=== PATIENT | male | born 1990 | race Caucasian/White ===

== ENCOUNTER 2016-06-24 19:27 | Emergency (ER) | payer MEDICAID ==
--- NOTE | 2016-06-24 19:51 | EDPHY ---
H & P Time Seen by Provider: 06/24/16 19:49 HPI/ROS: CHIEF COMPLAINT: AMS, Heroin and Etizolam use. HISTORY OF PRESENT ILLNESS: The patient is a 26-year-old male who presents with AMS. He was supposed to go to a heroin rehab program in [place] today. A counselor from the rehab facility picked the pt up from [place] this afternoon and found the pt to be quite somnolent. The pt admits using 1/4 gram heroin 7 hours ago and 8mg Etizolam 3 hours ago. He has been increasingly fatigued since use and now cannot stay awake. He was was sent here for medical clearance due somnolence and concern for respiratory depression. He denies SI or HI. REVIEW OF SYSTEMS: A complete 10-point review of systems was performed and is negative except for those items mentioned in the HPI. Past Medical/Surgical History: Asthma, IV drug abuse. Social History: Polysubstance abuse. Physical Exam: General Appearance: Lethargic, difficult to keep pt awake to have a conversation Eyes: Pupils equal and round, 2mm, no conjunctival pallor or injection ENT, Mouth: Mucous membranes moist Neck: Normal inspection Respiratory: resp rate 10, Lungs are clear to auscultation Cardiovascular: Regular rate and rhythm Gastrointestinal: Abdomen is soft and non-tender Neurological: lethargic, [place], follows commands, quickly falls to sleep Skin: Warm and dry Extremities: track dobbs, no erythema Psychiatric: flat affect Constitutional: Initial Vital Signs Heart Rate 101 H 06/24/16 19:47 Respiratory Rate 10 L 06/24/16 19:47 Blood Pressure 105/67 06/24/16 19:47 O2 Sat (%) 98 06/24/16 19:47 O2 Delivery Mode Room Air Allergies/Adverse Reactions: Penicillins Allergy (Verified 06/24/16 19:47) tree nut [Nuts] Allergy (Verified 06/24/16 19:46) Home Medications: Medication Instructions Recorded Albuterol 06/24/16 Medical Decision Making ED Course/Re-evaluation: This pt presents with AMS after polysubstance abuse. He is maintaining an adequate O2 saturation, but remains quite somnulent. We will monitor him until he is able to be discharged to the [facility] rehab facility. 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 At shift change, I signed this pt over to Dr. Almaraz. Differential Diagnosis: includes though not limited to hypoglycemia, alcohol intoxication, respiratory depression. Departure - Departure Disposition: Home, Routine, Self-Care Clinical Impression: Heroin use, Benzodiazepine abuse Condition: Good Instructions: Benzodiazepine Abuse (ED), Narcotic Abuse (ED) Additional Instructions: Return to the emergency department for any serious worsening of condition. Referrals: NONE *PRIMARY CARE P,. [Primary Care Provider] - As per Instructions Report Scribed for: Nao Estrella Report Scribed by: Robbie Garcia Date of Report: 06/24/16 Time of Report: 19:50 Physician Review and Approval Statement: 06/24/16 19:50 Portions of this note were transcribed by a medical laboratory specialist. I personally performed a history, physical exam, medical decision making, and confirmed accuracy of information the transcribed note.
[2016-06-24 20:08] VITALS: RESP 16
[2016-06-24 22:30] VITALS: PULSE 88
[2016-06-24 23:27] VITALS: TEMP 97.9
[2016-06-25 00:50] VITALS: BP 111/62; O2SAT 99
== END 2016-06-25 01:26 | disposition home or self-care (01) ==
DX: F13.10 Sedative, hypnotic or anxiolytic abuse, uncomplicated (principal); F11.90 Opioid use, unspecified, uncomplicated

== ENCOUNTER 2017-02-09 15:41 | Emergency (ER) | payer MEDICAID ==
[2017-02-09 15:48] VITALS: BP 147/94; PULSE 77; RESP 18; TEMP 97.7; O2SAT 98
--- NOTE | 2017-02-09 16:02 | EDPHY ---
H & P Stated Complaint: OD HEROIN LAST NIGHT/RX NARCAN 11PM/SEEN AT [facility] TODAY SWEATING/SHAKY Time Seen by Provider: 02/09/17 15:49 HPI/ROS: CHIEF COMPLAINT: Concerns after heroin OD HISTORY OF PRESENT ILLNESS: This patient is a 26 y/o male complaining of shakiness and anxiety. He was treated at [facility] last night for a heroin overdose, and given Narcan at that time. He takes Pristiq for depression, and "took a lot". He is generally prescribed 150mg per day, but took 400mg. He is concerned about serotonin syndrome. He does not think he is in withdrawal from heroin, as he is aware of his general symptoms and he had not used heroin for 1-2 months prior to his use last night. Today he feels anxious, confused, and dizzy and is sweating, has rigid muscles, and threw up twice. He denies any other drug use. He denies other associated symptoms or complaints. REVIEW OF SYSTEMS: A 10 point review of systems was performed and is negative with the exception of the elements mentioned in the history of present illness. - Personal History Current Tetanus/Diphtheria Vaccine: Yes - Medical/Surgical History PMH: 1. Depression 2. Asthma Hx Asthma: Yes Hx Chronic Respiratory Disease: No Hx Diabetes: No Hx Cardiac Disease: No Hx Renal Disease: No Hx Cirrhosis: No Hx Alcoholism: No Hx HIV/AIDS: No Hx Splenectomy or Spleen Trauma: No Other PMH: asthma, IVDA/HEROIN - Social History Smoking Status: Never smoked Additional Social History: Lives in [place]. Single. Nonsmoker. IV heroin use. - Physical Exam Exam: General Appearance: Alert, appears anxious Eyes: Pupils equal and round, no conjunctival pallor or injection ENT, Mouth: Mucous membranes moist Neck: Normal inspection Respiratory: Lungs are clear to auscultation Cardiovascular: Regular rate and rhythm Gastrointestinal: Abdomen is soft and non- tender Neurological: A&O, nonfocal, normal gait Skin: Warm and dry, no rash Extremities: Nontender, no pedal edema Psychiatric: Mood and affect normal Constitutional: Initial Vital Signs Temperature (C) 36.5 C 02/09/17 15:46 Heart Rate 77 02/09/17 15:46 Respiratory Rate 18 02/09/17 15:46 Blood Pressure 147/94 H 02/09/17 15:46 O2 Sat (%) 98 02/09/17 15:46 O2 Delivery Mode Room Air Allergies/Adverse Reactions: Penicillins Allergy (Verified 06/24/16 19:47) tree nut [Nuts] Allergy (Verified 06/24/16 19:46) Home Medications: Medication Instructions Recorded Albuterol 06/24/16 PRISTIQ 02/09/17 Medical Decision Making ED Course/Re-evaluation: 26 y/o male presents with anxiety and shakiness secondary to taking a double dose of his Pristiq medication following treatment for a heroin overdose last night. Physical exam unremarkable, vitals within normal limits. The patient is afebrile. There is no evidence of serotonin syndrome. Plan to administer 1mg PO Ativan for symptom relief. Per nurse, the patient has a h/o depression and intermittent suicidal ideation, denies SI now. He declines mental health evaluation now. Case management consulted. He would like to proceed to the crisis center for evaluation via private transport. 17:15 Reassessed patient. Denies SI/HI. Plan to discharge. Followup and return precautions discussed. He will proceed directly to the crisis center at this time for ongoing mental health care. He will continue his prescribed dose of Pristiq and follow up with his psychiatrist this week. The patient is comfortable with this plan. Differential Diagnosis: Differential diagnosis includes though it is not limited to suicidal ideation, for current syndrome, overdose, acute psychosis, self-injury, alcohol withdrawal. - Data Points Medications Given: Discontinued Medications Lorazepam (Ativan) 1 mg PO EDNOW ONE Stop: 02/09/17 16:04 Last Admin: 02/09/17 16:08 Dose: 1 mg Departure - Departure Disposition: Home, Routine, Self-Care Clinical Impression: Anxiety Condition: Good Instructions: Anxiety (ED) Additional Instructions: 1. Take your Pristiq only once a day. 2. Follow up with Dr. Wiggins this week to discuss your medication regimen. Referrals: Ronal Wiggins MD [Other] - As per Instructions Report Scribed for: Noa Estrella Report Scribed by: Mayte Robison Date of Report: 02/09/17 Time of Report: 15:50 Physician Review and Approval Statement: 02/09/17 15:50 Portions of this note were transcribed by a medical receptionist. I personally performed a history, physical exam, medical decision making, and confirmed accuracy of information the transcribed note.
[2017-02-09] MEDS ORDERED: LORazepam 1 MG TAB PO ONE (16:03)
--- NOTE | 2017-02-09 18:38 | ASMTCMCOM ---
CM Note CM Note Notes: Patient is here today for acute anxiety and resources for help. Spoke with patient extensively about his recent relapse with heroin use. Patient had been through a 3 month rehab "[facility]" in [place] and then was in a sober living house but was kicked out for sharing his gabapentin about a month ago. Patient was still clean until a couple of weeks ago, he states he used meth. Two nights ago he used heroin with a female friend and overdosed, requiring EMS to [facility] where he was given Narcan. Patient states his family lives in [place] and is supportive. He was speaking to his mother, Jamlia, father and brother throughout the ED visit. Patient states he is really depressed and "wish I had just when I overdosed." However, patient denies SI at this time and feels he can contract for safety. Plan is for patient to go to [facility] crisis walk-in center to talk to someone and get set up with their services. Patient will then go to his female friend's house for the night. Patient feels safe going to stay with his friend as she hadn't ever used drugs before the other night and "is probably freaked out, traumatized by it all." He states he has no supply and she wouldn't have any either. Patient stayed with her last night. Patient was offered a cab voucher to [facility] crisis center but he states his brother will pay for an Uber ride. Patient aware that he can always call 911 or return to the ED if he experiences increased anxiety or SI. Patient was provided information on [facility] Withdrawal Management program, [facility] Suboxone clinic, other local drug treatment centers and [facility] information. Patient sees a psychiatrist and states he plans to followup with him tomorrow. CM available for further assistance. Date Signed: 02/09/2017 06:38 PM Electronically Signed By:Kaylene Cox RN
== END 2017-02-09 17:47 | disposition home or self-care (01) ==
DX: F41.9 Anxiety disorder, unspecified (principal); J45.909 Unspecified asthma, uncomplicated

== ENCOUNTER 2017-02-14 21:09 | Emergency (ER) | payer MEDICAID ==
--- NOTE | 2017-02-14 21:18 | EDPHY ---
General - History Smoking Status: Never smoked Narrative: CHIEF COMPLAINT: Suicidal ideation, intoxication HISTORY OF PRESENT ILLNESS: Patient presents with reports of suicidal ideation. He reports that he has been depressed and wants to . He will not give me any specifics on how he wants to do so. He reports that he overdosed on heroin last week. He also reports methamphetamine use. He has history of depression and anxiety. He is not taking medication for this but has been told that he should be on medication by his previous psychiatrist. He has no complaints of chest pain or shortness of breath. No trauma or injury. He denies any self-inflicted wounds or ingestion of any pills or medications. No other associated complaints or modifying factors. PSYCHIATRIC DIAGNOSES: Depression, anxiety, substance abuse PRIOR PSYCHIATRIC EVALUATIONS: Multiple M1/DETAINER: Currently being completed by [place] [employer] at 9:15 p.m. REVIEW OF SYSTEMS: Ten systems reviewed and are negative unless otherwise noted in the HPI EXAMINATION General Appearance: Alert, no distress, laughing Head: normocephalic, atraumatic Eyes: Pupils equal and round, no conjunctival pallor or injection ENT, Mouth: Mucous membranes moist Neck: Normal inspection, supple, non-tender Respiratory: Lungs are clear to auscultation. No wheezing, rhonchi or crackles Cardiovascular: Regular rate and rhythm. No murmur Gastrointestinal: Abdomen is soft and nontender Back: non-tender, no bony abnormalities Neurological: A&O, nonfocal, normal gait Skin: Warm and dry, no rash Extremities: Nontender, no pedal edema Psychiatric: Appears intoxicated. Reports suicidal ideation without specific plan DIFFERENTIAL DIAGNOSES: Including but not limited to suicidal ideation, substance abuse, acute intoxication, overdose MDM: 9:15 p.m. Suicidal ideation and depression. Patient arrives by EMS after [place] [employer] were activated. [facility] is currently completing the M1 hold. The patient is aware of this. He does appear to be intoxicated but he is awake and alert. He is in no acute distress. 10:30 p.m. Patient re-evaluated. He is in no acute distress. He is awake and alert. Laboratory studies pending 11:30 p.m. Patient's blood alcohol level is 329. EPS have been notified, but they will not evaluate the patient as his blood alcohol was too high. He will need to remain emergency department until he jeff. 12:[address] At this time Dr. Coleman will assume care the patient. Please see his note for final disposition. Patient is pending evaluation which has been delayed due to his blood alcohol level of 329. ([place]) [id number]: No acute events overnight. Patient resting comfortably. Patient signed over to Dr. Estrella at 7:00 a.m. shift change. (Adilson Coleman) Medical Decision MakinAM: No acute events overnight patient is sleeping. Pending inpatient psychiatric placement. Signed over at 7:00 a.m. shift change to Dr. Noa Estrella. (Adilson Coleman) 2:30 p.m.-this patient was seen by mental health and felt appropriate for inpatient treatment of depression. 02/16/17 7am: I assumed care of this patient at shift change. He is still on an M1 hold for suicidal ideation and mental health is looking for inpatient disposition. (Noa Estrella) Discussion: 2pm: Accepted to [facility] ATU. EMTALA completed. (Noa Estrella) - Objective Vital Signs: Initial Vital Signs Temperature (C) 36.4 C 02/14/17 22:02 Heart Rate 84 02/14/17 22:02 Respiratory Rate 16 02/14/17 22:02 Blood Pressure 101/56 L 02/14/17 22:02 O2 Sat (%) 93 02/14/17 22:02 O2 Delivery Mode Room Air Allergies/Adverse Reactions: Penicillins Allergy (Verified 06/24/16 19:47) tree nut [Nuts] Allergy (Verified 06/24/16 19:46) Home Medications: Medication Instructions Recorded Albuterol [Proventil Inhaler HFA 1 puffs IH DAILY 02/15/17 (*)] Desvenlafaxine Succinate [Pristiq 100 mg PO DAILY 02/15/17 ER] Gabapentin [Neurontin 300 MG (*)] 300 mg PO Q4-6PRN PRN 02/15/17 QUEtiapine FUMARATE [Seroquel 50 50 mg PO HS 02/15/17 mg (*)] Laboratory Results: Laboratory Results 02/14/17 Unknown 02/14/17 22:17 Medications Given: Miscellaneous Medication (Desvenlafaxine) 100 mg PO DAILY MANGO Stop: 08/14/17 21:59 Last Admin: 02/15/17 22:16 Dose: 100 mg Discontinued Medications Albuterol Sulfate (Proventil Inh Prepack) 1 mdi TAKEHOME EDNOW ONE Stop: 02/15/17 11:10 Last Admin: 02/15/17 11:11 Dose: 1 mdi Lorazepam (Ativan) 1 mg PO EDNOW ONE Stop: 02/15/17 10:21 Last Admin: 02/15/17 10:29 Dose: 1 mg Lorazepam (Ativan) 1 mg PO EDNOW ONE Stop: 02/15/17 16:15 Last Admin: 02/15/17 16:18 Dose: 1 mg Lorazepam (Ativan) 1 mg PO ONCE ONE Stop: 02/15/17 22:42 Last Admin: 02/15/17 22:54 Dose: 1 mg Departure - Departure Disposition: Other Psych, Not [place] Clinical Impression: Suicidal ideation Acute alcohol intoxication Qualifiers: Complication of substance-induced condition: with unspecified complication Qualified Code(s): F10.929 - Alcohol use, unspecified with intoxication, unspecified Condition: Fair Referrals: Patient,NotPresent [Unknown] - As per Instructions
[2017-02-14 22:13] LABS: % IMMATURE GRANULYOCYTES 0.3 % (0.0-1.1); ABSOLUTE IMMATURE GRANULOCYTES 0.02 10^3/uL (0.00-0.10); ADD DIFF? NO; ADD MORPH? NO; ADD SCAN? NO; ATYPICAL LYMPHOCYTE FLAG 10 (0-99); FRAGMENT RBC FLAG 0 (0-99); HEMATOCRIT 51.1 % (40.0-51.0); HEMOGLOBIN 18.4 g/dL (13.7-17.5); LEFT SHIFT FLG 0 (0-99); LIPEMIA HEMOLYSIS FLAG 90 (0-99); MEAN CELL HEMOGLOBIN 29.8 pg (27.9-34.1); MEAN CELL VOLUME 82.7 fL (81.5-99.8); MEAN PLATELET VOLUME 8.3 fL (8.7-11.7); PLATELET CLUMPS FLAG 20 (0-99); PLATELET COUNT 237 10^3/uL (150-400); RED BLOOD CELL COUNT 6.18 10^6/uL (4.40-6.38); RED CELL DISTRIBUTION WIDTH 12.7 % (11.5-15.2)
[2017-02-14 22:58] LABS: ANION GAP 16 mEq/L (8-16); CALCIUM 9.5 mg/dL (8.5-10.4); CARBON DIOXIDE 22 mEq/l (22-31); CHLORIDE 107 mEq/L (97-110); GLOMERULAR FILTRATION RATE > 60; GLUCOSE 89 mg/dL (70-100); POTASSIUM 4.3 mEq/L (3.5-5.2); SALICYLATE < 1.0 mg/dL (2.0-20.0); SODIUM 145 mEq/L (134-144)
[2017-02-14 23:12] LABS: ETHANOL SERUM 329 mg/dL (0-10)
[2017-02-15] MEDS ORDERED: ALBUTEROL INH PREPACK MDI TAKEHOME ONE (08:56)
[2017-02-15] MEDS: LORazepam 1 MG TAB PO ONE ×3 (10:29→22:54)
[2017-02-15] MEDS: ALBUTEROL INH PREPACK MDI TAKEHOME ONE (11:11)
[2017-02-15] MEDS ORDERED: DESVENLAFAXINE 100 MG PO SCH (22:00)
[2017-02-16] MEDS: LORazepam 1 MG TAB PO ONE (14:18)
[2017-02-16 14:20] VITALS: BP 159/84; PULSE 80; RESP 18; TEMP 98.2; O2SAT 94
== END 2017-02-16 14:55 ==
LOC: EDUNIT#
DX: R45.851 Suicidal ideations (principal); F10.929 Alcohol use, unspecified with intoxication, unspecified
CPT/HCPCS: 80305; G0480